=== PATIENT | female | born 1950 | race Caucasian/White ===

== ENCOUNTER → 2019-11-20 | Outpatient (CLI) | payer OTHER ==
[2019-11-20 13:25] LABS: BODY FLUID WBC 3249 /uL
[2019-11-20 14:27] LABS: BF LYMPHOCYTES 22 %; BF MACROPHAGES 3 %; BF MONOCYTES 5 %; BF NEUTROPHILS 70 %
== END | disposition home or self-care (01) ==
LOC: LAB 12:22
PROVIDERS: Orthopaedic Surgery
DX: M25.451 Effusion, right hip (principal)